=== PATIENT | female | born 1930 | race Caucasian/White ===

== ENCOUNTER 2016-04-26 13:54 | Emergency (ER) | payer OTHER ==
[2016-04-26 14:06] VITALS: TEMP 97.7
--- NOTE | 2016-04-26 14:32 | UCPHY ---
H & P Patient Type: Established Smoking Status: Never smoked Time Seen by Provider: 04/26/16 14:07 HPI/ROS: HPI Fall down stairs. Hip and ankle pain. 86-year-old female by private vehicle with her friend. The patient was at home. She was walking down her stairs. She reports that she slipped and fell on to her right buttock and slid down 3 stairs. She did not hit her head. No loss of consciousness. No neck pain. No headache. She is not on anticoagulant medication. She complains of right upper buttock, posterior hip pain and left ankle pain and foot pain. ROS: Constitutional: No fever, no chills. No weakness. Eyes: No discharge. No changes in vision. ENT: No sore throat. No nasal congestion or rhinorrhea. Respiratory: No cough. No shortness of breath. Cardiac: No chest pain, no palpitations. Gastrointestinal: No abdominal pain, no vomiting, no diarrhea. Genitourinary: No hematuria. No dysuria or increased frequency with urination. Musculoskeletal: No back pain. No neck pain. As above. Skin: No rashes. Neurological: No headache. No focal weakness or altered sensation. Past medical history: Asthma, hypertension, hypothyroidism. Her primary care physician is Dr. lillian melchor. Social history: Here with her friend. She lives with her son in a house. Nonsmoker. Physical Exam: General Appearance: Alert, no distress. This patient is responding to questions appropriately and in full sentences. This patient appears well- hydrated and well-nourished. Head: Normocephalic atraumatic. Face: Facial bones are stable on palpation. Eyes: Pupils equal and round and reactive to light, no pallor or injection. No lid erythema or edema. ENT, Mouth: Mucous membranes moist. Dentition is intact. No malocclusion of the jaw. No tongue lacerations or abrasions. Pharynx is clear. The bilateral nasal canals are clear. No septal hematoma. Respiratory: There are no retractions, lungs are clear to auscultation with good air movement bilaterally. Chest wall is stable to AP and lateral palpation. Cardiovascular: Regular rate and rhythm. No murmur. Gastrointestinal: Abdomen is soft and nontender, no masses, bowel sounds normal. Neurological: Motor sensory function is intact. Cranial nerves are normal. Cerebellar function intact. Skin: Warm and dry, no rashes. No lacerations, abrasions or contusions. Musculoskeletal: Neck is supple and nontender. The trachea is midline. No midline cervical, thoracic, lumbar or sacral tenderness on palpation. No flank tenderness on palpation. Left ankle exam is significant for swelling to the lateral malleolus. She has some tenderness over this area. The skin is intact. No ecchymosis. No bony crepitus or step-off noted on palpation of the left ankle soft tissues. She has some tenderness on palpation involving the proximal to mid aspect of the dorsal foot. There is no associated swelling or ecchymosis on gross inspection of this area. The skin is intact. The left foot is neurovascularly intact. The right hip ranges freely in all planes of motion without any pain or impingement. There is no pain elicited by axial compression of the right hip. She has some tenderness on palpation over the lower aspect of the right sacroiliac joint. No soft tissue swelling, erythema or ecchymosis noted over this area. Extremities are otherwise symmetrical, full range of motion. All joints in the bilateral upper and bilateral lower extremities range without pain or impingement except the left ankle. No tenderness on palpation of the long bones in the bilateral upper and bilateral lower extremities. Psychiatric: No agitation. No depression. Database: Left ankle and foot series x-ray: Right hip x-ray series: EKG: Imaging: Procedures: Emergency department course: After my evaluation, she was sent for x-rays as above. 3:15 p.m., waiting on results of x-rays. Care turned over to Dr. Yonatan Garza at this time. Differential Diagnosis: The differential diagnosis on this patient includes but is not limited to left ankle sprain, right sacroiliac sprain, left foot sprain, left foot fracture. This represents a partial list of diagnoses considered. These considerations are based on history, physical exam, past history, reassessment and diagnostic testing. (Nemesio Goddard) Constitutional: Initial Vital Signs Temperature (C) 36.5 C 04/26/16 13:59 Heart Rate 75 04/26/16 13:59 Respiratory Rate 20 04/26/16 13:59 Blood Pressure 251/79 H 04/26/16 13:59 O2 Sat (%) 94 04/26/16 13:59 O2 Delivery Mode Room Air Allergies/Adverse Reactions: acetaminophen [From Vicodin] Allergy (Severe, Verified 04/26/16 14:18) codeine [Codeine] Allergy (Severe, Verified 04/26/16 14:18) hydrocodone bitartrate [From Vicodin] Allergy (Severe, Verified 04/26/16 14:18) lisinopril Allergy (Severe, Verified 04/26/16 14:18) Home Medications: Medication Instructions Recorded Levothyroxine [Synthroid 50 mcg 50 mcg PO DAILY06 12/19/08 (*)] Albuterol [Proventil Inhaler HFA 2 puffs IH Q4 PRN 07/15/15 (*)] Cholecalciferol (Vitamin D3) 2,000 unit PO HS 07/15/15 [Vitamin D3] Cyanocobalamin [Vitamin B12 (*)] 1,000 mcg PO DAILY 07/15/15 Herbals/Supplements -Info Only 1 ea PO DAILY 07/15/15 [place]-3 Fatty Acids [Fish Oil 1000 1,000 mg PO BID 07/15/15 mg (*)] Omeprazole Magnesium [Prilosec Otc] 20 mg PO DAILY 07/15/15 Vit C/Dl-E AC/Lut/Copper/Znox 1 cap PO BID 07/15/15 [Preservision Softgel] Methyl Salicylate/Menthol [Bengay 1 anthony TP Q6 PRN #0 oint 07/17/15 (*)] Ipratropium/Albuterol [Combivent 1 inh IH QID #0 mdi 07/19/15 Respimat Inhal [place](*)] Lactulose [Cephulac 20 gm/30 ml 20 gm PO TID PRN #0 ml 07/19/15 oral soln (*)] Magnesium Hydroxide [Milk of 30 ml PO DAILY PRN #0 udcup 07/19/15 Magnesia (*)] Polyethylene Glycol 3350 [Miralax 17 gm PO DAILY PRN #0 pkt 07/19/15 17 gm (*)] Sennosides/Docusate Sodium 1 - 2 tab PO BID #0 tab 07/19/15 [Senokot-S] amLODIPine BESYLATE [Norvasc 5 mg 5 mg PO DAILY #0 tab 07/19/15 (*)] Medical Decision Making - Diagnostics Imaging: Ankle x-ray: Lateral soft tissue swelling but no acute fracture per Radiology. Hip x-ray: Official read: No fracture Foot x-ray: Official read: No fracture (Yonatan Garza) ED Course/Re-evaluation: I counseled the patient regarding ankle sprain. On ankle exam after x-ray: Anterior drawer is negative for laxity. She has lateral tenderness to the anterolateral malleolus. No medial ankle tenderness or foot tenderness other than dorsum of the foot. She is treated with Tylenol for her hip and ankle discomfort. She is placed in a stirrup splint. I encouraged her to use cane, walker or crutches until it is no longer painful to bear weight. (Yonatan Garza) Departure - Departure Disposition: Home, Routine, Self-Care Clinical Impression: Sprain of left ankle Qualifiers: Encounter type: initial encounter Involved ligament of ankle: unspecified ligament Qualified Code(s): S93.402A - Sprain of unspecified ligament of left ankle, initial encounter Sprain of left foot Qualifiers: Encounter type: initial encounter Qualified Code(s): S93.602A - Unspecified sprain of left foot, initial encounter Lower back injury Qualifiers: Encounter type: initial encounter Qualified Code(s): S39.92XA - Unspecified injury of lower back, initial encounter Condition: Good Instructions: Ankle Sprain (ED), Low Back Strain (ED) Additional Instructions: Diagnosis: Ankle sprain 2. Back strain/contusion 3. Foot sprain Plan: Ibuprofen 400 600 mg every 6 hours for pain and swelling until symptoms resolve. Tylenol in addition if needed. Splint until your symptoms resolve. When you can bear weights and walk without any significant pain, then start rehabilitation exercises. These rehab. exercises will include gentle stretches the 4 directions, "the alphabet", and manual resistance exercises in the 4 directions. Continue these exercises for the next several months revealed to rebuild your ankle strength. If your ankle is not improving with the above plan or for worsening symptoms call orthopedic M.D. for followup appointment. Read and follow provided instructions. Follow-up with your primary care physician in 1-2 days for re-evaluation. Take medication as prescribed. Return to the emergency department for worsening symptoms or other serious concerns. Referrals: Ramila Tidwell MD [Primary Care Provider] - As per Instructions Aníbal Cobb MD [Medical Doctor] - As per Instructions - PQRS PQRS Measurement: 134: Depression screening and followup, PRIME MD-PHQ2 (12 years and older) Over the last 2 weeks, how often have you been bothered by any of the following problems? 1. Feeling down, depressed, or hopeless? 2. Little interest or pleasure in doing things? Answered no to both questions. 130: Documentation of medications. Reviewed all patient medications, doses, route and frequency. 226: Do you smoke? No. 47: 65 and older: Advanced care planning. Patient designates surrogate decision maker as family. 51: 18 years old and older with diagnosis of COPD, spirometry performance. NA 52: 18 years old and older with COPD and symptoms of COPD or FEV1<60% predicted prescribed a B Agonist. NA (Nemesio Goddard)
[2016-04-26] MEDS ORDERED: ACETAMINOPHEN 325 MG TAB PO ONE (15:55)
[2016-04-26 16:08] VITALS: BP 148/82; PULSE 63; RESP 16; O2SAT 93
== END 2016-04-26 16:19 | disposition home or self-care (01) ==
LOC: CED 13:54
DX: S93.402A Sprain of unspecified ligament of left ankle, initial encounter (principal); S93.602A Unspecified sprain of left foot, initial encounter; S39.92XA Unspecified injury of lower back, initial encounter; M25.551 Pain in right hip; W10.8XXA Fall (on) (from) other stairs and steps, initial encounter; Y92.019 Unspecified place in single-family (private) house as the place of occurrence of the external cause; Y99.8 Other external cause status; I10 Essential (primary) hypertension; E03.9 Hypothyroidism, unspecified; J45.909 Unspecified asthma, uncomplicated
CPT/HCPCS: 73502; 73610; 73630; G0463; L4350

== ENCOUNTER → 2016-05-02 | Outpatient (CLI) | payer OTHER | LOC: CIMAGING 09:17 | PROVIDERS: ATTEND Family Medicine | DX: M79.89 Other specified soft tissue disorders (principal) | CPT/HCPCS: 93971-PO ==

== ENCOUNTER → 2016-12-04 | Outpatient (CLI) | payer OTHER | LOC: CIMAGING 09:50 | PROVIDERS: ATTEND Family Medicine | DX: J45.31 Mild persistent asthma with (acute) exacerbation (principal); I51.7 Cardiomegaly; Z77.22 Contact with and (suspected) exposure to environmental tobacco smoke (acute) (chronic) | CPT/HCPCS: 71020-PO ==

== ENCOUNTER → 2017-08-01 | Outpatient (CLI) | payer OTHER | LOC: CIMAGING 10:05 | PROVIDERS: ATTEND Family Medicine | DX: M25.552 Pain in left hip (principal); M25.551 Pain in right hip; M54.5 Low back pain; M51.36 Other intervertebral disc degeneration, lumbar region; I70.0 Atherosclerosis of aorta | CPT/HCPCS: 72100-PO; 73521-PO ==

== ENCOUNTER → 2018-04-16 | Outpatient (CLI) | payer OTHER | LOC: CIMAGING 14:39 | PROVIDERS: ATTEND Family Medicine | DX: I70.201 Unspecified atherosclerosis of native arteries of extremities, right leg (principal); I87.8 Other specified disorders of veins | CPT/HCPCS: 73590-PO ==